=== PATIENT | male | born 1960 ===

== ENCOUNTER 2018-06-09 05:53 | Emergency (ER) | payer OTHER ==
[~2018-06-09] VITALS: Ht 177.8 cm; Wt 86.2 kg
[2018-06-09 05:53] VITALS: Ht 177.8 cm; Wt 86.2 kg
== END 2018-06-09 10:06 | disposition expired ==
LOC: ED 05:53
DX: I46.9 Cardiac arrest, cause unspecified (principal); Z98.890 Other specified postprocedural states